=== PATIENT | female | born 1990 | race Caucasian/White ===

== ENCOUNTER → 2018-02-08 09:06 | Outpatient (CLI) | payer OTHER, SELFPAY ==
[2018-02-10 15:10] LABS: Urea Breath Test >18YRS Not Detected
== END ==
DX: K52.9 Noninfective gastroenteritis and colitis, unspecified (principal)
CPT/HCPCS: 83013; 87045

== ENCOUNTER → 2019-09-05 09:25 | Outpatient (CLI) | payer OTHER, SELFPAY ==
[2019-09-05 09:53] LABS: RBC Urine None Seen (0-5/HPF)
[2019-09-05 11:08] LABS: Hematocrit 44.9 % (36-46); Hemoglobin 15.2 g/dL (12.0-16.0); Mean Corpuscular HGB Conc 33.8 % (30-36); Mean Corpuscular Hemoglobin 31.9 PG (26-34); Mean Corpuscular Volume 94.3 fL (80-100); Platelet Count 239 X10^3/uL (150-400); Red Blood Cell Count 4.77 X10^6/uL (4.0-5.2); Red Cell Distribution Width 13.5 % (11.6-14.8); White Blood Cell Count 6.7 X10^3/uL (4.5-11.0)
[2019-09-05 11:37] LABS: Alanine Aminotransferase 15 IU/L (<35); Albumin 4.8 g/dL (3.5-5.0); Albumin Globulin Ratio 1.5 (1.0-2.8); Alkaline Phosphatase 30 U/L (38-126); Aspartate Aminotransferase 25 IU/L (14-36); BUN Creatinine Ratio 32.5 (6-22); Bilirubin Total 0.7 mg/dL (0.2-1.3); Blood Urea Nitrogen 26 mg/dL (7-17); Calcium 9.9 mg/dL (8.4-10.2); Carbon Dioxide 28 mmol/L (22-32); Chloride 100 mmol/L (98-107); Cholesterol 203 mg/dL (140-199); Estimated Glomerular Filt Rate > 60.0 mL/min (>60); Globulin 3.2 g/dL (1.7-4.1); Glucose 90 mg/dL (70-100); HDL Cholesterol 108 mg/dL (40-60); HEMOLYSIS 39 (0-50); LDL Cholesterol Calculated 75 mg/dL (<100); Potassium 4.6 mmol/L (3.4-5.1); Sodium 136 mmol/L (137-145); Triglycerides 101 mg/dL (35-150)
[2019-09-05 11:50] LABS: Free T4, Direct Thyroxine 0.99 ng/dL (0.78-2.19)
[2019-09-05 12:03] LABS: Thyroid Stimulating Hormone 3.35 uIU/mL (0.47-4.68)
[2019-09-05 12:05] LABS: Appearance Urine UA CLEAR; Bilirubin Urine UA NEGATIVE (NEGATIVE); Color Urine UA YELLOW; Glucose Urine UA NEGATIVE (Negative); Ketones Urine UA NEGATIVE (NEGATIVE); Leukocyte Esterase Urine UA NEGATIVE (NEGATIVE); Nitrite Urine UA NEGATIVE (Negative); Occult Blood Urine UA NEGATIVE (Negative); Protein Urine UA NEGATIVE (Negative); Urobilinogen Urine UA 0.2 E.U./dL (0.2)
[2019-09-05 12:15] LABS: Bacteria Urine Moderate (10-30); Culture Indicated Urine Cult Not Indicated; Squamous Epithelial Cell Urine 5-10 /HPF (0-5/HPF); WBC Urine 0-1/HPF (0-5/HPF)
== END ==
PROVIDERS: PCP Nurse Practitioner; Visit Provider Nurse Practitioner
DX: Z00.00 Encounter for general adult medical examination without abnormal findings (principal); R03.0 Elevated blood-pressure reading, without diagnosis of hypertension
CPT/HCPCS: 36415; 80053; 80061; 81001; 84439; 84443; 84481; 85027

== ENCOUNTER 2020-07-04 09:22 | Emergency (ER) | payer SELFPAY ==
[2020-07-04] VITALS (17 sets, daily range): BP systolic 132–156; BP diastolic 69–100; PULSE 83–109; RESP 13–26; TEMP 37.1; O2SAT 98–100; BMI 22.8
--- NOTE | 2020-07-04 09:44 | DI.RAD.S_ITS ---
PROCEDURE: XR CHEST 1V INDICATIONS: chest pain TECHNIQUE: One view of the chest was acquired. COMPARISON: None. FINDINGS: Surgical changes and devices: Incidental note is made of a metallic body ornamentation artifact. Lungs and pleura: On this semiupright portable chest examination, no large pneumothorax or large pleural effusions are seen. No focal infiltrates are seen. Mediastinum: Mediastinal contours appear normal. Heart size is normal. Bones and chest wall: No suspicious bony lesions. Overlying soft tissues appear unremarkable. IMPRESSION: Portable chest within normal limits. Dictated by: Randolph Ybarra M.D. on 07/04/2020 at 9:05 Approved by: Randolph Ybarra M.D. on 07/04/2020 at 9:08
[2020-07-04 09:52] LABS: INR 1.1 (0.9-1.3); Prothrombin Time 12.3 SECONDS (10.1-12.7)
[2020-07-04 09:53] LABS: Add Manual Diff / Slide Review NO; Basophils Absolute Auto 0 /uL (0-100); Basophils Percent Auto 0.1 % (0-2); Eosinophils Absolute Auto 0 /uL (0-450); Hematocrit 36.8 % (36-46); Hemoglobin 12.2 g/dL (12.0-16.0); Lymphocytes Absolute Auto 1000 /uL (1100-4500); Lymphocytes Percent Auto 6.9 % (25-40); Mean Corpuscular Hemoglobin 31.2 PG (26-34); Mean Corpuscular Volume 94.4 fL (80-100); Monocytes Absolute Auto 700 /uL (0-900); Monocytes Percent Auto 4.6 % (3-14); Neutrophils Absolute Auto 13200 /uL (1500-7000); Neutrophils Percent Auto 88.4 % (50-75); Platelet Count 238 X10^3/uL (150-400); Red Cell Distribution Width 13.5 % (11.6-14.8)
[2020-07-04 09:55] LABS: PTT Partial Thromboplastin Tim 26 SECONDS (26.4-36.2)
[2020-07-04 09:57] LABS: Alanine Aminotransferase 23 IU/L (<35); Albumin 4.7 g/dL (3.5-5.0); Albumin Globulin Ratio 1.6 (1.0-2.8); Alkaline Phosphatase 35 U/L (38-126); Aspartate Aminotransferase 32 IU/L (14-36); BUN Creatinine Ratio 25.7 (6-22); Bilirubin Total 0.7 mg/dL (0.2-1.3); Blood Urea Nitrogen 18 mg/dL (7-17); Calcium 9.4 mg/dL (8.4-10.2); Carbon Dioxide 24 mmol/L (22-32); Chloride 104 mmol/L (98-107); Creatine Kinase 251 U/L (30-135); Estimated Glomerular Filt Rate > 60.0 mL/min (>60); Globulin 2.9 g/dL (1.7-4.1); Glucose 150 mg/dL (70-100); HEMOLYSIS < 15 (0-50); Lipase 146 U/L (23-300); Potassium 3.8 mmol/L (3.4-5.1); Sodium 136 mmol/L (137-145); Total Protein 7.6 g/dL (6.3-8.2)
[2020-07-04 10:08] LABS: Troponin I < 0.012 ng/mL (0.01-0.034)
[2020-07-04 10:12] LABS: CKMB % Relative Index 0.8 % (1.5-5.0); Creatine Kinase MB 1.98 ng/mL (<2.37)
[2020-07-04 10:17] LABS: COVID19 -Nasal RAPID Negative (Negative)
--- NOTE | 2020-07-04 11:33 | DI.US.S_ITS ---
PROCEDURE: US ABDOMEN LIMITED INDICATIONS: RIGHT UPPER QUADRANT PAIN TECHNIQUE: Real-time focused scanning was performed of the abdomen, with image documentation. COMPARISON: [facility], CR, XR CHEST 1V, 07/04/2020, 9:46. FINDINGS: The liver is normal in size and demonstrates no focal lesions. The liver demonstrates increased echogenicity. No findings of gallstones or sludge are seen. The gallbladder wall is not thickened, measuring 3 mm or less. No specific pericholecystic fluid is seen. The sonographic Hurst sign is negative. There is no biliary dilatation, the common bile duct measures 2-3 mm. The visualized pancreas is unremarkable. A small amount of free intraperitoneal fluid can be seen. IMPRESSION: The gallbladder demonstrates a normal sonographic appearance. No biliary dilatation is seen. The liver demonstrates increased echogenicity. This finding is nonspecific, yet it is most commonly attributed to fatty infiltration. A small amount of ascites is seen. Dictated by: Randolph Ybarra M.D. on 07/04/2020 at 11:52 Approved by: Randolph Ybarra M.D. on 07/04/2020 at 11:53
[2020-07-04] MEDS: ONDANSETRON 4 MG/2 ML INJ IV (11:47)
[2020-07-04] MEDS: SODIUM CHLORIDE 0.9% 1,000 ML 1000 ML IV (11:47)
[2020-07-04] MEDS: MORPHINE 2 MG/ML INJ IV (11:47)
[2020-07-04 12:01] LABS: NT-proBNP (BNP-Adult 18+) 36 pg/mL (<125)
[2020-07-04] MEDS: MORPHINE 4 MG/ML INJ IV (12:37)
--- NOTE | 2020-07-04 13:12 | DI.CT.S_ITS ---
PROCEDURE: CT ANGIO CHEST PE PROTOCOL INDICATIONS: chest pain, short of breath, tachy, family hx PEs, elevated wbc TECHNIQUE: After the administration of intravenous contrast, 2 mm thick sections acquired from the pulmonary apices to the posterior costophrenic angles. 3-dimensional maximum intensity projection (MIP) coronal and sagittal reformats were then acquired through the thorax. For radiation dose reduction, the following was used: automated exposure control, adjustment of mA and/or kV according to patient size. COMPARISON: [facility], CR, XR CHEST 1V, 07/04/2020, 9:46. [facility], CT, CT ABDOMEN PELVIS W CON, 07/04/2020, 13:19. FINDINGS: Image quality: Excellent. Pulmonary arteries: Pulmonary arteries are normal in size, and demonstrate no intraluminal filling defects to suggest central pulmonary embolism. Lungs and pleura: Lungs are clear. No pleural effusions or pneumothorax. Central and peripheral airways are patent. Mediastinum: Heart size is normal, without pericardial effusion. No mediastinal or hilar adenopathy. Thoracic aorta is normal in caliber and enhancement. Esophagus is normal in caliber, without hiatal hernia. Bones and chest wall: No suspicious bony lesions. Ribs and thoracic spine appear intact throughout. Thyroid gland demonstrates no significant abnormality. No axillary or supraclavicular adenopathy. Mammoplasty implants are incidentally noted. Incidental note is made of a metallic body ornamentation artifact. Abdomen: A small amount of high density ascites can be seen in following the visualized upper abdomen, which measures 29 Hounsfield units. The visualized portions of the upper abdominal structures are otherwise unremarkable for imaging technique. IMPRESSION: Negative for pulmonary embolism. A small amount of free intraperitoneal fluid is seen, which measures 29 Hounsfield units, and is consistent with hemorrhagic fluid. Incidental note is made of: Mammoplasty implants Dictated by: Randolph Ybarra M.D. on 07/04/2020 at 13:03 Approved by: Randolph Ybarra M.D. on 07/04/2020 at 13:06
--- NOTE | 2020-07-04 13:14 | DI.CT.S_ITS ---
PROCEDURE: CT ABDOMEN PELVIS W CON INDICATIONS: abd pain, elevated wbc, nausea TECHNIQUE: After the administration of intravenous contrast, 5 mm thick sections acquired from the diaphragm to the symphysis. 5 mm coronal and sagittal reformats were acquired. For radiation dose reduction, the following was used: automated exposure control, adjustment of mA and/or kV according to patient size. COMPARISON: [facility], CT, CT ANGIO CHEST PE PROTOCOL, 07/04/2020, 13:19. [facility], US, US ABDOMEN LIMITED, 07/04/2020, 12:06. FINDINGS: Image quality: Excellent. ABDOMEN: Lung bases: Lung bases are clear. Heart size is normal. Mammoplasty implants are partially seen. Solid organs: Liver is normal in size and enhancement. Gallbladder demonstrates no significant abnormality. Biliary system is non dilated. Pancreas enhances normally. Spleen is normal in size and enhancement. No adrenal nodules. Kidneys demonstrate normal size and enhancement, without hydronephrosis. Peritoneum and bowel: There is a small amount of ascites seen, including layering fluid within the pelvis. This ascites is relatively high density, measuring approximately 30 Hounsfield units. Bowel loops demonstrate normal wall thickness and caliber. No free air. Nodes and vessels: No retroperitoneal or mesenteric adenopathy by size criteria. Aorta and inferior vena cava are normal in size. Miscellaneous: No ventral hernias. PELVIS: Genitourinary: Bladder wall thickness is normal. A 3.5 cm left adnexal cyst is seen. The uterus is unremarkable. Miscellaneous: No inguinal hernias or adenopathy. Bones: No suspicious bony lesions. No vertebral body compression fractures. Mild levoconvex scoliotic curvature is noted. IMPRESSION: 3.5 cm left ovarian cyst seen, with high-density ascites, which is attributed to hemorrhagic ascites. A ruptured hemorrhagic cyst is suspected in this patient with a given history of a negative test. If clinically appropriate, a dedicated pelvic ultrasound could be considered for further evaluation. Please consider gynecology consultation. Incidental note is made of: Mammoplasty implants Levoconvex scoliotic curvature Dictated by: Randolph Ybarra M.D. on 07/04/2020 at 13:06 Approved by: Randolph Ybarra M.D. on 07/04/2020 at 13:09
[2020-07-04] MEDS: KETOROLAC 60 MG/2 ML VIAL 30 MG IV (15:13)
[2020-07-04] MEDS: HYDROCODONE/ACET 5/325 TABLET 1 TAB PO (15:14)
--- NOTE | 2020-07-04 19:33 | ED_ITS ---
HPI - Chest Pain <SAMI Drake - Last Filed: 07/05/20 11:21> General Chief Complaint: Chest Pain Stated Complaint: chest pain Time Seen by Provider: 07/04/20 11:11 Source: patient Mode of arrival: Ambulatory Limitations: no limitations History of Present Illness HPI narrative: The patient is a 30-year-old female nonsmoker presents with a chief complaint of bilateral for chest pain that started yesterday. She states she feels lightheaded, short of breath and dizzy at times. She felt very sweaty and diaphoretic last night. She does have a history of hypertension is not taking her medications due to lack of insurance. She denies any personal history of pulmonary embolism or blood clots, though notes that her mother had pulmonary embolisms for which she needs to be treated. She denies any falls or trauma. She states that her abdomen hurts as well, denies any dysuria urgency or frequency. She complains of nausea, no vomiting or diarrhea. She does note that she has a history of anxiety as well, is no longer taking her medications due to cost. She denies any known exposure to coronavirus, though is not entirely positive. She denies any cough or congestion. Related Data Previous Rx's Medication Instructions Recorded lisinopril 2.5 mg tablet 2.5 mg PO DAILY #90 tab 10/03/19 sertraline 25 mg tablet 25 mg PO DAILY #90 tab 10/03/19 hydrocodone-acetaminophen [[place]leton] 1 tab PO Q4-6H PRN #10 tab 07/04/20 ketorolac 10 mg PO TID PRN #15 tab 07/04/20 ondansetron 4 mg PO Q6H PRN #14 tab 07/04/20 Allergies Allergy/AdvReac Type Severity Reaction Status Date / Time No Known Drug Allergies Allergy Verified 07/04/20 09:41 Review of Systems <SAMI Drake - Last Filed: 07/05/20 11:21> Review of Systems Narrative: GENERAL: See HPI HEENT: Denies sinus pain, ear pain, sore throat, difficulty swallowing, dizziness. RESPIRATORY: See HPI CARDIOVASCULAR: See HPI GASTROINTESTINAL: See HPI : Denies dysuria, frequency, incontinence, hematuria, urinary retention. MUSCULOSKELETAL: denies weakness, joint pain, or bony pain SKIN: Denies rash, skin lesions, or other NEUROLOGIC: Denies weakness, headache, numbness, change in speech, confusion, seizures, incoordination. PSYCHIATRIC: No concerning psychosocial issues. 12 point review of systems is negative except for those stated above Patient History <SAMI Drake - Last Filed: 07/05/20 11:21> Surgical History Anesthesia (Resolved) History of breast augmentation (Resolved ~2014) History of tonsillectomy (Resolved ~2003) Family History Father Hypertension Social History Smoking Status: Never smoker Smoking Status: Never smoker alcohol intake frequency: holidays/special occasions only Substance Use Type: does not use Exam <SAMI Drake - Last Filed: 07/05/20 11:21> Narrative Exam Narrative: GENERAL: This is a well-nourished, well-developed patient, in mild no acute distress HEAD: Atraumatic. Normocephalic. No temporal or scalp tenderness. EYES: Pupils equal round and reactive. Extraocular motions intact. No scleral icterus. No injection or drainage. ENT: Nose without bleeding, purulent drainage or septal hematoma. Throat without erythema, tonsillar hypertrophy or exudate. Uvula midline. Airway patent. NECK: Trachea midline. No JVD or lymphadenopathy. Supple, nontender, no meningeal signs. CARDIOVASCULAR: Regular rate and rhythm RESPIRATORY: Clear to auscultation. Breath sounds equal bilaterally. No wheezes, rales, or rhonchi. No cough. No increased respiratory effort. No accessory muscle use. GASTROINTESTINAL: Abdomen soft, diffusely tender to palpation, guarding noted right upper quadrant, nondistended. No hepato-splenomegaly, or palpable masses. Active bowel sounds all 4 quadrants EXTREMITIES: No clubbing, cyanosis, or edema. No joint tenderness, effusion, or edema noted. BACK: Nontender without deformity or crepitance. No flank tenderness. NEURO: AOx3. SKIN: No rash or erythema on visible skin Initial Vital Signs Initial Vital Signs: Vital Signs Temperature 98.8 F 07/04/20 09:31 Pulse Rate 109 H 07/04/20 09:31 Respiratory Rate 21 07/04/20 09:31 Blood Pressure 152/100 H 07/04/20 09:31 Pulse Oximetry 100 07/04/20 09:31 <Jia Tanner DO - Last Filed: 07/09/20 08:30> Initial Vital Signs Initial Vital Signs: Vital Signs Temperature 98.8 F 07/04/20 09:31 Pulse Rate 109 H 07/04/20 09:31 Respiratory Rate 21 07/04/20 09:31 Blood Pressure 152/100 H 07/04/20 09:31 Pulse Oximetry 100 07/04/20 09:31 Scores <SAMI Drake - Last Filed: 07/05/20 11:21> GCS Marana coma scale eye opening: Spontaneous Marana coma scale verbal response: Orientated Holly coma scale motor response: Obey commands Marana coma scale total score: 15 HEART Score Heart Score history: Slightly Suspicious Heart Score EKG: Normal Heart Score Age: < 45 years old Heart Score risk factors: 1-2 risk factors Heart Score troponin: < or = to normal limit Heart Score Total: 1 PERC Score Age greater than or equal to 50 years: No Heart rate greater than or equal to 100 bpm: Yes Room Air O2 Sat less than 95%: No Unilateral leg swelling: No Recent trauma or surgery: No Hemoptysis: No Prior PE or DVT: No Hormone Use: No Total PERC Score: 1 Wells' Criteria for PE Clinical signs and symptoms of DVT: No PE is #1 Dx or equally likely: No Heart rate > 100: Yes Immobilization at least 3 days or surg in previous 4 weeks: No History of PE or DVT: No Hemoptysis: No Malignancy w/Treatment within 6 months or palliative: No Wells' PE Score total: 1.5 Course <SAMI Drake - Last Filed: 07/05/20 11:21> Orders Ordered: Discontinued Medications Hydrocodone Bitart/Acetaminophen ([place] 5/325) 1 tab PO NOW ONE Stop: 07/04/20 14:58 Last Admin: 07/04/20 15:14 Dose: 1 tab Documented by: ALMAS Sodium Chloride (Normal Saline 0.9%) 1,000 mls @ 1,000 mls/hr IV BOLUS ONE Stop: 07/04/20 12:28 Last Infusion: 07/04/20 14:50 Dose: 0 mls/hr Documented by: Admin: 07/04/20 11:47 Dose: 1,000 mls/hr Documented by: SILVESTRE Ketorolac Tromethamine (Toradol) 30 mg IV NOW ONE Stop: 07/04/20 14:58 Last Admin: 07/04/20 15:13 Dose: 30 mg Documented by: ALMAS Morphine Sulfate (Morphine) 2 mg IV NOW ONE Stop: 07/04/20 11:30 Last Admin: 07/04/20 11:47 Dose: 2 mg Documented by: SILVESTRE Morphine Sulfate (Morphine) 4 mg IV NOW ONE Stop: 07/04/20 12:33 Last Admin: 07/04/20 12:37 Dose: 4 mg Documented by: SILVESTRE Ondansetron HCl (Zofran) 4 mg IV NOW ONE Stop: 07/04/20 11:30 Last Admin: 07/04/20 11:47 Dose: 4 mg Documented by: SILVESTRE Vital Signs Vital signs: Vital Signs - 8 hr 07/04/20 12:00 07/04/20 12:30 07/04/20 13:00 Pulse Rate 100 H 101 H 86 Respiratory Rate 22 19 20 Blood Pressure 149/95 H 156/94 H 141/89 H Pulse Oximetry 100 100 98 07/04/20 13:49 07/04/20 13:50 07/04/20 14:00 Pulse Rate 90 103 H 91 H Respiratory Rate 13 19 Blood Pressure 139/86 147/93 H Pulse Oximetry 100 99 100 07/04/20 14:30 07/04/20 15:00 07/04/20 15:01 Pulse Rate 83 91 H 90 Respiratory Rate 19 Blood Pressure 132/75 133/85 Pulse Oximetry 100 100 100 07/04/20 15:30 07/04/20 16:00 Pulse Rate 83 89 Respiratory Rate 19 Blood Pressure 134/82 Pulse Oximetry 99 99 <Jia Tanner, - Last Filed: 07/09/20 08:30> Orders Ordered: Discontinued Medications Hydrocodone Bitart/Acetaminophen ([place] 5/325) 1 tab PO NOW ONE Stop: 07/04/20 14:58 Last Admin: 07/04/20 15:14 Dose: 1 tab Documented by: ALMAS Sodium Chloride (Normal Saline 0.9%) 1,000 mls @ 1,000 mls/hr IV BOLUS ONE Stop: 07/04/20 12:28 Last Infusion: 07/04/20 14:50 Dose: 0 mls/hr Documented by: Admin: 07/04/20 11:47 Dose: 1,000 mls/hr Documented by: SILVESTRE Ketorolac Tromethamine (Toradol) 30 mg IV NOW ONE Stop: 07/04/20 14:58 Last Admin: 07/04/20 15:13 Dose: 30 mg Documented by: ALMAS Morphine Sulfate (Morphine) 2 mg IV NOW ONE Stop: 07/04/20 11:30 Last Admin: 07/04/20 11:47 Dose: 2 mg Documented by: SILVESTRE Morphine Sulfate (Morphine) 4 mg IV NOW ONE Stop: 07/04/20 12:33 Last Admin: 07/04/20 12:37 Dose: 4 mg Documented by: SILVESTRE Ondansetron HCl (Zofran) 4 mg IV NOW ONE Stop: 07/04/20 11:30 Last Admin: 07/04/20 11:47 Dose: 4 mg Documented by: SILVESTRE Vital Signs Vital signs: Vital Signs - 8 hr 07/04/20 12:00 07/04/20 12:30 07/04/20 13:00 Pulse Rate 100 H 101 H 86 Respiratory Rate 22 19 20 Blood Pressure 149/95 H 156/94 H 141/89 H Pulse Oximetry 100 100 98 07/04/20 13:49 07/04/20 13:50 07/04/20 14:00 Pulse Rate 90 103 H 91 H Respiratory Rate 13 19 Blood Pressure 139/86 147/93 H Pulse Oximetry 100 99 100 07/04/20 14:30 07/04/20 15:00 07/04/20 15:01 Pulse Rate 83 91 H 90 Respiratory Rate 19 Blood Pressure 132/75 133/85 Pulse Oximetry 100 100 100 07/04/20 15:30 07/04/20 16:00 Pulse Rate 83 89 Respiratory Rate 19 Blood Pressure 134/82 Pulse Oximetry 99 99 MDM - Chest Pain <REILLY Drake- - Last Filed: 07/05/20 11:21> Lab Data Attestation: I reviewed the patient's lab results. Result diagrams: 07/04/20 09:35 07/04/20 09:35 Labs: Lab Results 07/04/20 07/04/20 07/04/20 Range/Units 09:35 09:35 09:35 WBC 15.0 H (4.5-11.0) X10^3/uL RBC 3.90 L (4.0-5.2) X10^6/uL Hgb 12.2 (12.0-16.0) g/dL Hct 36.8 (36-46) % MCV 94.4 (80-100) fL MCH 31.2 (26-34) PG MCHC 33.0 (30-36) % RDW 13.5 (11.6-14.8) % Plt Count 238 (150-400) X10^3/uL Neut % (Auto) 88.4 H (50-75) % Lymph % (Auto) 6.9 L (25-40) % [place] % (Auto) 4.6 (3-14) % Eos % (Auto) 0.0 L (2-4) % Baso % (Auto) 0.1 (0-2) % Neut # (Auto) 32714 H (0981-0054) /uL Lymph # (Auto) 1000 L (4522-8086) /uL [place] # (Auto) 700 (0-900) /uL Eos # (Auto) 0 (0-450) /uL Baso # (Auto) 0 (0-100) /uL PT 12.3 (10.1-12.7) SECONDS INR 1.1 (0.9-1.3) APTT 26 L (26.4-36.2) SECONDS Sodium 136 L (137-145) mmol/L Potassium 3.8 (3.4-5.1) mmol/L Chloride 104 (98-107) mmol/L Carbon Dioxide 24 (22-32) mmol/L BUN 18 H (7-17) mg/dL Creatinine 0.70 (0.52-1.04) mg/dL Estimated GFR > 60.0 (>60) mL/min BUN/Creatinine Ratio 25.7 H (6-22) Glucose 150 H (70-100) mg/dL Calcium 9.4 (8.4-10.2) mg/dL Total Bilirubin 0.7 (0.2-1.3) mg/dL AST 32 (14-36) IU/L ALT 23 (<35) IU/L Alkaline Phosphatase 35 L (38-126) U/L Total Creatine Kinase 251 H (30-135) U/L CK-MB (CK-2) 1.98 (<2.37) ng/mL CK-MB (CK-2) Rel Index 0.8 L (1.5-5.0) % Troponin I < 0.012 (0.01-0.034) ng/mL NT-Pro-B Natriuret Pep (<125) pg/mL Total Protein 7.6 (6.3-8.2) g/dL Albumin 4.7 (3.5-5.0) g/dL Globulin 2.9 (1.7-4.1) g/dL Albumin/Globulin Ratio 1.6 (1.0-2.8) Lipase 146 (23-300) U/L COVID-19 PCR (Negative) 07/04/20 07/04/20 Range/Units 09:35 09:47 WBC (4.5-11.0) X10^3/uL RBC (4.0-5.2) X10^6/uL Hgb (12.0-16.0) g/dL Hct (36-46) % MCV (80-100) fL MCH (26-34) PG MCHC (30-36) % RDW (11.6-14.8) % Plt Count (150-400) X10^3/uL Neut % (Auto) (50-75) % Lymph % (Auto) (25-40) % [place] % (Auto) (3-14) % Eos % (Auto) (2-4) % Baso % (Auto) (0-2) % Neut # (Auto) (8420-8121) /uL Lymph # (Auto) (6428-5063) /uL [place] # (Auto) (0-900) /uL Eos # (Auto) (0-450) /uL Baso # (Auto) (0-100) /uL PT (10.1-12.7) SECONDS INR (0.9-1.3) APTT (26.4-36.2) SECONDS Sodium (137-145) mmol/L Potassium (3.4-5.1) mmol/L Chloride (98-107) mmol/L Carbon Dioxide (22-32) mmol/L BUN (7-17) mg/dL Creatinine (0.52-1.04) mg/dL Estimated GFR (>60) mL/min BUN/Creatinine Ratio (6-22) Glucose (70-100) mg/dL Calcium (8.4-10.2) mg/dL Total Bilirubin (0.2-1.3) mg/dL AST (14-36) IU/L ALT (<35) IU/L Alkaline Phosphatase (38-126) U/L Total Creatine Kinase (30-135) U/L CK-MB (CK-2) (<2.37) ng/mL CK-MB (CK-2) Rel Index (1.5-5.0) % Troponin I (0.01-0.034) ng/mL NT-Pro-B Natriuret Pep 36 (<125) pg/mL Total Protein (6.3-8.2) g/dL Albumin (3.5-5.0) g/dL Globulin (1.7-4.1) g/dL Albumin/Globulin Ratio (1.0-2.8) Lipase (23-300) U/L COVID-19 PCR Negative (Negative) Point of Care Testing Test Results Negative Urine Dip Bedside Urine Glucose Negative Bedside Urine Bilirubin - Negative Bedside Urine Ketone - Negative Urine Specific [place] 1.015 Bedside Urine Occult Blood - Negative Bedside Urine pH 6.0 Bedside Urine Protein - Negative Bedside Urine Urobilinogen - Negative Bedside Urine Nitrite - Negative Bedside Urine Leukocytes - Negative Esterase Imaging Data Chest x-ray: Radiologist's Impression: [address] [place] [id number] XRay Report Signed Patient: Joslyn Garvey RMR#: [id number] : 1990Acct:[id number] Age/Sex: 30 / FDate of Service: 07/04/20 Loc: ED Accession Number: [id number] Procedure: XR chest 1V Ordering Provider: Jia Tanner D.O. PROCEDURE: XR CHEST 1V INDICATIONS: chest pain TECHNIQUE: One view of the chest was acquired. COMPARISON: None. FINDINGS: Surgical changes and devices: Incidental note is made of a metallic body ornamentation artifact. Lungs and pleura: On this semiupright portable chest examination, no large pneumothorax or large pleural effusions are seen. No focal infiltrates are seen. Mediastinum: Mediastinal contours appear normal. Heart size is normal. Bones and chest wall: No suspicious bony lesions. Overlying soft tissues appear unremarkable. IMPRESSION: Portable chest within normal limits. Dictated by: Randolph Ybarra M.D. on 07/04/2020 at 9:05 Approved by: Randolph Ybarra M.D. on 07/04/2020 at 9:08 US - abdomen: Radiologist's Impression: [address] [address] Ultrasound Report Signed Patient: Joslyn Garvey RMR#: [id number] : 1990Acct:[id number] Age/Sex: 30 / FDate of Service: 07/04/20 Loc: ED Accession Number: [id number] Procedure: US abdomen limited Ordering Provider: Jia Mckeon PROCEDURE: US ABDOMEN LIMITED INDICATIONS: RIGHT UPPER QUADRANT PAIN TECHNIQUE: Real-time focused scanning was performed of the abdomen, with image documentation. COMPARISON: [facility], CR, XR CHEST 1V, 07/04/2020, 9:46. FINDINGS: The liver is normal in size and demonstrates no focal lesions. The liver demonstrates increased echogenicity. No findings of gallstones or sludge are seen. The gallbladder wall is not thickened, measuring 3 mm or less. No specific pericholecystic fluid is seen. The sonographic Hurst sign is negative. There is no biliary dilatation, the common bile duct measures 2-3 mm. The visualized pancreas is unremarkable. A small amount of free intraperitoneal fluid can be seen. IMPRESSION: The gallbladder demonstrates a normal sonographic appearance. No bi liary dilatation is seen. The liver demonstrates increased echogenicity. This finding is nonspecific, yet it is most commonly attributed to fatty infiltration. A small amount of ascites is seen. Dictated by: Randolph Ybarra M.D. on 07/04/2020 at 11:52 Approved by: Randolph Ybarra M.D. on 07/04/2020 at 11:53 CT scan - chest: Radiologist's Impression: [address] [place] [address] [id number] [address] Scan Report Signed Patient: Joslyn Garvey RMR#: [id number] : 1990Acct:[id number] Age/Sex: 30 / FDate of Service: 07/04/20 Loc: ED Accession Number: [id number] Procedure: CT angio chest PE protocol Ordering Provider: Jia Mckoen PROCEDURE: CT ANGIO CHEST PE PROTOCOL INDICATIONS: chest pain, short of breath, tachy, family hx PEs, elevated wbc TECHNIQUE: After the administration of intravenous contrast, 2 mm thick sections acquired from the pulmonary apices to the posterior costophrenic angles. 3-dimensional maximum intensity projection (MIP) coronal and sagittal reformats were then acquired through the thorax. For radiation dose reduction, the following was used: automated exposure control, adjustment of mA and/or kV according to patient size. COMPARISON: [facility], CR, XR CHEST 1V, 07/04/2020, 9:46. [facility], CT, CT ABDOMEN PELVIS W CON, 07/04/2020, 13:19. FINDINGS: Image quality: Excellent. Pulmonary arteries: Pulmonary arteries are normal in size, and demonstrate no intraluminal filling defects to suggest central pulmonary embolism. Lungs and pleura: Lungs are clear. No pleural effusions or pneumothorax. Central and peripheral airways are patent. Mediastinum: Heart size is normal, without pericardial effusion. No mediastinal or hilar adenopathy. Thoracic aorta is normal in caliber and enhancement. Es ophagus is normal in caliber, without hiatal hernia. Bones and chest wall: No suspicious bony lesions. Ribs and thoracic spine appear intact throughout. Thyroid gland demonstrates no significant abnormality. No axillary or supraclavicular adenopathy. Mammoplasty implants are incidentally noted. Incidental note is made of a metallic body ornamentation artifact. Abdomen: A small amount of high density ascites can be seen in following the visualized upper abdomen, which measures 29 Hounsfield units. The visualized portions of the upper abdominal structures are otherwise unremarkable for imaging technique. IMPRESSION: Negative for pulmonary embolism. A small amount of free intraperitoneal fluid is seen, which measures 29 Hounsfield units, and is consistent with hemorrhagic fluid. Incidental note is made of: Mammoplasty implants Dictated by: Randolph Ybarra M.D. on 07/04/2020 at 13:03 Approved by: Randolph Ybarra M.D. 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 5 mm coronal and sagittal reformats were acquired. For radiation dose reduction, the following was used: automated exposure control, adjustment of mA and/or kV according to patient size. COMPARISON: [facility], CT, CT ANGIO CHEST PE PROTOCOL, 07/04/2020, 13:19. [facility], US, US ABDOMEN LIMITED, 07/04/2020, 12:06. FINDINGS: Image quality: Excellent. ABDOMEN: Lung bases: Lung bases are clear. Heart size is normal. Mammoplasty implants are partially seen. Solid organs: Liver is normal in size and enhancement. Gallbladder demonstrates no significant abnormality. Biliary system is non dilated. Pancreas enhances normally. Spleen is normal in size and enhancement. No adrenal nodules. Kidneys demonstrate normal size and enhancement, without hydronephrosis. Peritoneum and bowel: There is a small amount of ascites seen, including layering fluid within the pelvis. This ascites is relatively high density, measuring approximately 30 Hounsfield units. Bowel loops demonstrate normal wall thickness and caliber. No free air. Nodes and vessels: No retroperitoneal or mesenteric adenopathy by size criteria. Aorta and inferior vena cava are normal in size. Miscellaneous: No ventral hernias. PELVIS: Genitourinary: Bladder wall thickness is normal. A 3.5 cm left adnexal cyst is seen. The uterus is unremarkable. Miscellaneous: No inguinal hernias or adenopathy. Bones: No suspicious bony lesions. No vertebral body compression fractures. Mild levoconvex scoliotic curvature is noted. IMPRESSION: 3.5 cm left ovarian cyst seen, with high-density ascites, which is attributed to hemorrhagic ascites. A ruptured hemorrhagic cyst is suspected in this patient with a given history of a negative test. If clinically appropriate, a dedicated pelvic ultrasound could be considered for further evaluation. Please consider gynecology consultation. Incidental note is made of: Mammoplasty implants Levoconvex scoliotic curvature Dictated by: Randolph Ybarra M.D. on 07/04/2020 at 13:06 Approved by: Randolph Ybarra M.D. on 07/04/2020 at 13:09 ECG Data Attestation: I personally reviewed and interpreted this ECG as follows: Interpretation: Sinus tachycardia. Ventricular 101. P.r. interval 140. QRS 74. Viewed by Dr Tanner MDM Narrative Medical decision making narrative: The patient is a 30-year-old female who presents with a chief complaint of chest pain ongoing since yesterday, abdominal pain, nausea. Her coronavirus test is negative. Her chest x-ray has no acute findings. She is tachycardic with slight leukocytosis to 15. Her EKG has no acute findings, her initial troponin is negative. Given pain palpation right upper quadrant with nausea leukocytosis, ultrasound was taken to rule out ch olecystitis. However given she is tachycardic, transiently shortness breath, does have a family history of pulmonary embolism who did elect to scan her to rule out a PE as well as abdomen pelvis given her exam tenderness to palpation. This came back concerning for a left-sided ovarian cyst that is hemorrhagic nature. Discussed findings with Dr. Tanner elected to hold off on ultrasound at this point time as it would not change the management of the patient at this point. The patient is feeling much improved after the above-stated therapies. I discussed at length the importance of with primary care provider, coming back to the emergency department for any acute concerns such as sudden severe pain, abdominal pain with fever etcetera. The patient was given prescriptions of Stap[place], Zofran, Toradol. I discussed at length the importance of follow-up, possibility of repeat imaging etcetera. Patient has no questions or concerns upon discharge and states understanding of return precautions as well as follow- up care. <Jia Tanner, DO - Last Filed: 07/09/20 08:30> Lab Data Attestation: I reviewed the patient's lab results. Labs: Lab Results 07/04/20 07/04/20 07/04/20 Range/Units 09:35 09:35 09:35 WBC 15.0 H (4.5-11.0) X10^3/uL RBC 3.90 L (4.0-5.2) X10^6/uL Hgb 12.2 (12.0-16.0) g/dL Hct 36.8 (36-46) % MCV 94.4 (80-100) fL MCH 31.2 (26-34) PG MCHC 33.0 (30-36) % RDW 13.5 (11.6-14.8) % Plt Count 238 (150-400) X10^3/uL Neut % (Auto) 88.4 H (50-75) % Lymph % (Auto) 6.9 L (25-40) % [place] % (Auto) 4.6 (3-14) % Eos % (Auto) 0.0 L (2-4) % Baso % (Auto) 0.1 (0-2) % Neut # (Auto) 48142 H (6590-7210) /uL Lymph # (Auto) 1000 L (0679-6584) /uL [place] # (Auto) 700 (0-900) /uL Eos # (Auto) 0 (0-450) /uL Baso # (Auto) 0 (0-100) /uL PT 12.3 (10.1-12.7) SECONDS INR 1.1 (0.9-1.3) APTT 26 L (26.4-36.2) SECONDS Sodium 136 L (137-145) mmol/L Potassium 3.8 (3.4-5.1) mmol/L Chloride 104 (98-107) mmol/L Carbon Dioxide 24 (22-32) mmol/L BUN 18 H (7-17) mg/dL Creatinine 0.70 (0.52-1.04) mg/dL Estimated GFR > 60.0 (>60) mL/min BUN/Creatinine Ratio 25.7 H (6-22) Glucose 150 H (70-100) mg/dL Calcium 9.4 (8.4-10.2) mg/dL Total Bilirubin 0.7 (0.2-1.3) mg/dL AST 32 (14-36) IU/L ALT 23 (<35) IU/L Alkaline Phosphatase 35 L (38-126) U/L Total Creatine Kinase 251 H (30-135) U/L CK-MB (CK-2) 1.98 (<2.37) ng/mL CK-MB (CK-2) Rel Index 0.8 L (1.5-5.0) % Troponin I < 0.012 (0.01-0.034) ng/mL NT-Pro-B Natriuret Pep (<125) pg/mL Total Protein 7.6 (6.3-8.2) g/dL Albumin 4.7 (3.5-5.0) g/dL Globulin 2.9 (1.7-4.1) g/dL Albumin/Globulin Ratio 1.6 (1.0-2.8) Lipase 146 (23-300) U/L COVID-19 PCR (Negative) 07/04/20 07/04/20 Range/Units 09:35 09:47 WBC (4.5-11.0) X10^3/uL RBC (4.0-5.2) X10^6/uL Hgb (12.0-16.0) g/dL Hct (36-46) % MCV (80-100) fL MCH (26-34) PG MCHC (30-36) % RDW (11.6-14.8) % Plt Count (150-400) X10^3/uL Neut % (Auto) (50-75) % Lymph % (Auto) (25-40) % [place] % (Auto) (3-14) % Eos % (Auto) (2-4) % Baso % (Auto) (0-2) % Neut # (Auto) (4785-9230) /uL Lymph # (Auto) (6785-3342) /uL [place] # (Auto) (0-900) /uL Eos # (Auto) (0-450) /uL Baso # (Auto) (0-100) /uL PT (10.1-12.7) SECONDS INR (0.9-1.3) APTT (26.4-36.2) SECONDS Sodium (137-145) mmol/L Potassium (3.4-5.1) mmol/L Chloride (98-107) mmol/L Carbon Dioxide (22-32) mmol/L BUN (7-17) mg/dL Creatinine (0.52-1.04) mg/dL Estimated GFR (>60) mL/min BUN/Creatinine Ratio (6-22) Glucose (70-100) mg/dL Calcium (8.4-10.2) mg/dL Total Bilirubin (0.2-1.3) mg/dL AST (14-36) IU/L ALT (<35) IU/L Alkaline Phosphatase (38-126) U/L Total Creatine Kinase (30-135) U/L CK-MB (CK-2) (<2.37) ng/mL CK-MB (CK-2) Rel Index (1.5-5.0) % Troponin I (0.01-0.034) ng/mL NT-Pro-B Natriuret Pep 36 (<125) pg/mL Total Protein (6.3-8.2) g/dL Albumin (3.5-5.0) g/dL Globulin (1.7-4.1) g/dL Albumin/Globulin Ratio (1.0-2.8) Lipase (23-300) U/L COVID-19 PCR Negative (Negative) Point of Care Testing Test Results Negative Urine Dip Bedside Urine Glucose Negative Bedside Urine Bilirubin - Negative Bedside Urine Ketone - Negative Urine Specific [place] 1.015 Bedside Urine Occult Blood - Negative Bedside Urine pH 6.0 Bedside Urine Protein - Negative Bedside Urine Urobilinogen - Negative Bedside Urine Nitrite - Negative Bedside Urine Leukocytes - Negative Esterase ECG Data Attestation: I personally reviewed and interpreted this ECG as follows: Interpretation: Sinus tach rate of 101 P are 140 QRS is 74 and QTC of 438. No ST elevation, no depression. Nonspecific change. Discharge Plan Departure Patient Disposition: Home Clinical Impression: Atypical chest pain, Cyst of left ovary Abdominal pain Qualifiers: Abdominal location: generalized Qualified Code(s): R10.84 - Generalized abdominal pain Discharge Date/Time: 07/04/20 16:13 Instructions: DI for Ovarian Cyst, DI for Abdominal Pain-Adult, DI for Atypical Chest Pain Activity Restrictions/Additional Instructions: Thank you for trusting us with your care today. As discussed, your imaging came back with a left-sided ovarian cyst. Please follow-up with primary care provider. You may need further imaging and/or evaluation. I have given you contact information to the [facility] health human resources partner in case she needed primary care provider. I sent 3 medications to [facility]. I have given you a prescription of a narcotic for pain. Be aware that this can be constipating and sedating. I encouraged taking with a stool softener, push ing fluids and fiber. Do not take and drive, operate heavy machinery, etc. Do not combine it with any other sedating substances such as alcohol. The combination of narcotics and alcohol and/or other sedatives can be lethal. I have given you a prescription of Toradol. This is an NSAID. Do not combine it with other NSAIDs such as Aleve or ibuprofen. I suggest taking it with some food, as it can irritate your stomach. I also sent a prescription of ondansetron for nausea. This can be constipating. Please come back to the emergency department for any acute concerns. Prescriptions: New hydrocodone-acetaminophen [[place]] 5-325 mg tablet 1 tab PO Q4-6H PRN (Reason: pain) Qty: 10 RF: 0 ketorolac 10 mg tablet 10 mg PO TID PRN (Reason: pain) Qty: 15 RF: 0 ondansetron 4 mg tablet,disintegrating 4 mg PO Q6H PRN (Reason: nausea and vomiting) Qty: 14 RF: 0 No Action sertraline 25 mg tablet 25 mg PO DAILY Qty: 90 RF: 1 lisinopril 2.5 mg tablet 2.5 mg PO DAILY Qty: 90 RF: 3 Referrals: [facility] [Outside]
== END 2020-07-04 16:13 | disposition home or self-care (01) ==
PROVIDERS: Emergency Medicine; Emergency Provider Nurse Practitioner Family
DX: R07.89 Other chest pain (principal); R10.84 Generalized abdominal pain; N83.202 Unspecified ovarian cyst, left side; R00.0 Tachycardia, unspecified; R11.0 Nausea; R06.02 Shortness of breath; R42 Dizziness and giddiness; R10.11 Right upper quadrant pain; D72.829 Elevated white blood cell count, unspecified
CPT/HCPCS: 36415; 71045; 71275; 74177; 76705; 80053; 81003; 81025; 82550; 82553; 83690; 83880; 84484; 85025; 85610; 85730; 87635; 93005; 96361; 96374; 96375; 96376; 99284; 99285; J1885; J2270; J2405; Q9967